=== PATIENT | male | born 1950 | race Caucasian/White ===

== ENCOUNTER → 2017-03-20 | Day surgery (SDC) | payer MEDICARE, OTHER ==
[~2017-03-20] MED LIST: Lactated Ringers 1,000 ML IV SCH; Propofol 200 MG/20 ML SDV IV ONE
[2017-03-20 08:45] VITALS: BP 143/89
--- NOTE | 2017-03-20 13:32 | OR ---
DATE OF OPERATION: 03/20/2017 PREOPERATIVE DIAGNOSIS: POSITIVE COLOGUARD. POSTOPERATIVE DIAGNOSIS: POSITIVE COLOGUARD. SURGEON: Edward Hou MD PROCEDURE: FULL-LENGTH COLONOSCOPY WITH POLYPECTOMY X4. ANESTHESIA: [employer] due to obesity and chronic GERD. COMPLICATIONS: None. SPECIMEN: Four tubular adenomas. FINDINGS: 1. Full-length colonoscopy. 2. Minimal sigmoid diverticulosis. 3. Four colon polyps, one approximately 0.5 cm at the rectal vault. RECOMMENDATIONS: Followup colonoscopy in 2 years. INDICATIONS: The patient was in for a physical, had a positive Cologuard. He has been over 16 years since his last colonoscopy. Dr. Crowder sent him for procedure. DESCRIPTION OF PROCEDURE: The patient was prepped and draped, placed in the left lateral decubitus position. A lubricated Olympus colonoscope was inserted and easily advanced to the cecum. Direct visualization of the ileocecal valve and appendiceal orifice was accomplished. The bowel prep was adequate. Upon withdrawal of the scope, the cecum appeared benign. In the proximal ascending colon, just outside the cecal vault, patient had a small flat tubular adenoma removed in its entirety with 2 separate forceps biopsies. He had a second polyp near the hepatic flexure, similar in size, well less than 0.5 cm also removed with the forceps. The rest of the transverse and descending colons were completely benign. In the sigmoid colon, the patient did have a few scattered diverticula, but very minimal. No signs of any vascular abnormalities, bleeding sites, or colitis. He had a larger adenoma approximately 0.5 cm which was flat, but easily removed with a snare and suctioned into a polyp trap #1, in the mid sigmoid colon. The rectal vault itself had the 4th tubular adenoma, easily stalked and removed with a snare, was slightly larger than a 0.5 cm in size. It was suctioned into a polyp trap, #2. Retroflexion of scope in the rectum showed no perianal lesions. Air was suctioned. The scope was removed without complication. SUSY/ELIZ /[id number]
== END ==
LOC: CC.SDS 06:14
PROVIDERS: ATTEND Family Medicine
DX: Z12.11 Encounter for screening for malignant neoplasm of colon (principal); D12.0 Benign neoplasm of cecum; D12.3 Benign neoplasm of transverse colon; D12.5 Benign neoplasm of sigmoid colon; D12.8 Benign neoplasm of rectum; K57.30 Diverticulosis of large intestine without perforation or abscess without bleeding; I10 Essential (primary) hypertension; E78.5 Hyperlipidemia, unspecified; K21.9 Gastro-esophageal reflux disease without esophagitis; E55.9 Vitamin D deficiency, unspecified; Z91.012 Allergy to eggs; Z79.899 Other long term (current) drug therapy; Z87.891 Personal history of nicotine dependence
CPT/HCPCS: 00812; 88305; J2704; J7120

== ENCOUNTER → 2018-12-23 | Day surgery (SDC) | payer MEDICARE, OTHER ==
[~2018-12-23] MED LIST changes: +Albuterol 8 GM Inhaler INH PRN; +Bupivacaine 0.25% 10 ML SDV ONE; +Bupivacaine 0.5%/EPINEPHrine 1:200,000 10 ML SDV ONE; +METOPROLOL SUCCINATE 50 MG PO SCH; +Non-Formulary Medication 1 Each (Esomeprazole Magnesium [Esomeprazole Magnesium] 40 MG) PO SCH; +QUINAPRIL 20 MG PO SCH; +Sodium Chloride 0.9% 10 ML Syringe FLUSH PRN; +ceFAZolin 1 GM Vial IVPUSH ONE; +fentaNYL 100 MCG/2 ML SDV ONE
--- NOTE | 2018-12-23 13:26 | OR ---
DATE OF OPERATION: 12/23/2018 PREOPERATIVE DIAGNOSIS: LARGE SCROTAL RIGHT INGUINAL HERNIA. POSTOPERATIVE DIAGNOSIS: LARGE SCROTAL RIGHT INGUINAL HERNIA. SURGEON: Paul Laurent MD PROCEDURE: OPEN REPAIR OF SCROTAL INGUINAL HERNIA WITH MESH. ANESTHESIA: General. ESTIMATED BLOOD LOSS: Minimum. SPECIMEN: Hernia sac. INDICATIONS: This 68-year-old male has a large inguinal hernia. He states it has gotten much larger over the last few months and actually on an out of town visit was admitted to the hospital for bowel obstruction. This obstruction resolved, however, and he came home without having any surgery. He now presents for definitive repair. DESCRIPTION OF PROCEDURE: After adequate preparation, a right groin incision was made and carried down to the external abdominal oblique. This was opened in the direction of fibers and the external ring was identified and the fascia divided through the external ring. This exposed a large hernia sac with small bowel easily visible through the hernia sac. By blunt dissection, the hernia sac was dissected free from the scrotal structures and brought up into the wound. The hernia sac was dissected free from the cord and the preperitoneal fat pad that accompanied it. The sac was then identified to be an indirect sac and the bowel contents were all reduced easily back into the abdomen. The hernia sac was then twisted to close it down to the deep inguinal ring. A transfixion suture of 0 Prolene x2 was done to tie off the hernia sac and the distal sac was amputated. The excess preperitoneal fat was also trimmed from the cord. A precut Prolene mesh was used then to strengthen the inguinal floor. The inferior margin of the mesh was attached to the inguinal ligament with a running 0 Prolene suture. The upper was tacked to the rectus abdominis and the internal oblique by using interrupted 0 Vicryl sutures. A tail had been pre cut in the mesh. This was surrounded. As the cord came through the deep inguinal ring, the ends of the mesh and tail were sutured together to close off this space. This seemed to adequately cover the inguinal floor. Hemostasis was secured. The external oblique was oversewn over the cord that was replaced back in the inguinal canal. A 10 mm Jason-Salazar drain was introduced through a stab incision lateral to the incision. This was then placed in the subcutaneous space and manipulated down into the empty space in the right scrotal sac. The skin was closed with Monocryl. The patient was taken to recovery room. MARIA ELENA/ELIZ /[id number]
[2018-12-23] MEDS: Acetaminophen/oxyCODONE 325-5 MG Tab PO PRN ×2 (14:33→19:44)
[2018-12-24] MEDS: Acetaminophen/oxyCODONE 325-5 MG Tab PO PRN ×2 (02:05→09:41)
--- NOTE | 2018-12-24 07:56 | PCM.SN ---
- Free Text/Narrative Note: Stable POD#1. Pain controlled with PO Percocet. Ambulation without difficulty. Drain with minimal output. VSS. Plan on discharge later today. Get up and have breakfast first. FU with Johnny Avalos next week for drain removal. Percocet (#20) given for pain. No restrictions on diet or activity.
[2018-12-24 12:40] VITALS: BP 146/83; PULSE 78
== END | disposition home or self-care (01) ==
LOC: CC.SDS 07:30
PROVIDERS: ATTEND Surgery
DX: K40.90 Unilateral inguinal hernia, without obstruction or gangrene, not specified as recurrent (principal)
CPT/HCPCS: A9270-GY; J0690; J2270; J2704; J3010; J7120

== ENCOUNTER 2018-12-24 18:14 | Emergency (ER) | payer MEDICARE, OTHER ==
[2018-12-24 18:18] VITALS: BP 158/100; PULSE 92
[2018-12-24] MEDS ORDERED: Ondansetron 4 MG Tab.DIS ONE (18:21)
--- NOTE | 2018-12-24 18:26 | EDM.PDOC ---
ED HPI GENERAL MEDICAL PROBLEM - General Chief Complaint: Abdominal Pain Stated Complaint: ABD Pain Time Seen by Provider: 12/24/18 18:15 Source of Information: Reports: Patient History Limitations: Reports: No Limitations - History of Present Illness INITIAL COMMENTS - FREE TEXT/NARRATIVE: This patient is a 68 year old male that presents to the ER. Patient reports that he had hernia repair yesterday, was discharged this morning. Patient reports since being discharged home he has not had gas or a BM. Patient reports he has been belching and feels nauseated. Patient reports history of bowel obstruction 1 month ago per patient. Onset: Today Onset Date: 12/24/18 Onset Time: 11:00 Location: Reports: Abdomen Improves with: Reports: None Worsens with: Reports: None Associated Symptoms: Reports: Nausea/Vomiting. Denies: Confusion, Chest Pain, Cough, cough w sputum, Diaphoresis, Fever/Chills, Headaches, Loss of Appetite, Malaise, Rash, Seizure, Shortness of Breath, Syncope, Weakness mid abd Pain Score (Numeric/FACES): 6 - Related Data Allergies Allergy/AdvReac Type Severity Reaction Status Date / Time banana Allergy Vomiting Verified 12/24/18 18:18 egg Allergy Other Verified 12/24/18 18:18 Home Meds: Home Meds Cetirizine [ZyrTEC] 10 mg PO DAILY 03/20/17 [History] Esomeprazole Magnesium 40 mg PO DAILY 03/20/17 [History] Metoprolol Succinate [Toprol XL 50mg] 50 mg PO DAILY 03/20/17 [History] Naproxen Sodium [Aleve] 220 mg PO DAILY 03/20/17 [History] Quinapril [Accupril] 20 mg PO DAILY 03/20/17 [History] Sildenafil [Viagra] 50 mg PO ASDIRECTED PRN 03/20/17 [History] Albuterol Sulfate [Albuterol Sulfate Hfa] 1 puff INH Q4H PRN 12/22/18 [History] Acetaminophen/oxyCODONE [Percocet 325-5 MG] 1 each PO Q4HR PRN 12/24/18 [History ] ED ROS GENERAL - Review of Systems Review Of Systems: See Below Constitutional: Reports: No Symptoms HEENT: Reports: No Symptoms Respiratory: Reports: No Symptoms Cardiovascular: Reports: No Symptoms Endocrine: Reports: No Symptoms GI/Abdominal: Reports: Abdominal Pain (surgical site. and feels "backed up"), Constipation, Nausea. Denies: Diarrhea, Flatus, Vomiting : Reports: No Symptoms Musculoskeletal: Reports: No Symptoms Skin: Reports: No Symptoms Neurological: Reports: No Symptoms Psychiatric: Reports: No Symptoms Hematologic/Lymphatic: Reports: No Symptoms Immunologic: Reports: No Symptoms ED EXAM, GI/ABD - Physical Exam Exam: See Below Exam Limited By: No Limitations General Appearance: Alert, WD/WN, No Apparent Distress Eyes: Bilateral: Normal Appearance Respiratory/Chest: No Respiratory Distress, Lungs Clear, Normal Breath Sounds, No Accessory Muscle Use Cardiovascular: Normal Peripheral Pulses, Regular Rate, Rhythm, No Edema, No Gallop, No JVD, No Murmur, No Rub GI/Abdominal Exam: Normal Bowel Sounds, Soft, Tender (RLQ at srugical site. ), Other (DAVID draine RLQ, drainging without complication. No surrounding redness or heat, or drainge at site that appears to be infectious. ). No: Guarding, Rebound Back Exam: Normal Inspection, Full Range of Motion Extremities: Normal Inspection, Normal Range of Motion, Non-Tender, No Pedal Edema, Normal Capillary Refill Neurological: Alert, Oriented Psychiatric: Normal Affect, Normal Mood Skin Exam: Warm, Dry, Intact, Normal Color, No Rash Course - Vital Signs Last Recorded V/S: Last Vital Signs Temp 99.3 F 12/24/18 18:15 Pulse 92 12/24/18 18:15 Resp 18 12/24/18 18:15 BP 158/100 H 12/24/18 18:15 Pulse Ox 96 12/24/18 18:15 - Orders/Labs/Meds Orders: Active Orders 24 hr Category Date Time Status Enema [RC] ASDIRECTED Care 12/24/18 18:52 Active Labs: Laboratory Tests 12/24/18 12/24/18 Range/Units 18:15 18:15 WBC 9.9 (5.0-10.0) 10^3/uL RBC 4.61 (4.50-6.00) 10^6/uL Hgb 14.6 (14.0-18.0) g/dL Hct 42.6 (40.0-54.0) % MCV 92.4 (82.0-94.0) fL MCH 31.7 (27.0-32.0) pg MCHC 34.3 (33.0-38.0) g/dL RDW Coeff of Lito 13.6 (11.0-15.0) % Plt Count 206 (150-400) 10^3/uL Neut % (Auto) 78.9 (35-85) % Lymph % (Auto) 11.4 (10-55) % Wolfe % (Auto) 9.0 (0-16) % Eos % (Auto) 0.5 (0-5) % Baso % (Auto) 0.2 (0-3) % Neut # (Auto) 7.84 H (1.80-7.00) 10^3/uL Lymph # (Auto) 1.13 (1.00-4.80) 10^3/uL Wolfe # (Auto) 0.89 H (0.00-0.80) 10^3/uL Eos # (Auto) 0.05 (0.00-0.45) 10^3/uL Baso # (Auto) 0.02 10^3/uL Sodium 137 (136-145) mEq/L Potassium 4.2 (3.5-5.0) mEq/L Chloride 100 (98-106) mEq/L Carbon Dioxide 24 (21-32) mmol/L BUN 17 (7-18) mg/dL Creatinine 1.4 H (0.7-1.3) mg/dL Est Cr Clr Drug Dosing 52.14 mL/min Estimated GFR (MDRD) 50 L (>=60) mL/min Glucose 120 H (75-99) mg/dL Calcium 9.0 (8.4-10.1) mg/dL Total Bilirubin 1.3 H (0.0-1.0) mg/dL AST 18 (15-37) U/L ALT 22 (12-78) U/L Alkaline Phosphatase 72 (46-116) U/L Total Protein 7.3 (6.4-8.2) g/dL Albumin 3.4 (3.4-5.0) g/dL Amylase 57 (25-115) U/L Lipase 108 (73-393) U/L Meds: Medications Discontinued Medications Generic Name Dose Route Start Last Admin Trade Name Freq PRN Reason Stop Dose Admin Magnesium Hydroxide 30 ml 12/24/18 18:52 12/24/18 19:19 Milk Of Magnesia PO 12/24/18 18:53 30 ml ONETIME ONE Administration Ondansetron HCl 4 mg 12/24/18 18:33 12/24/18 18:36 Zofran Odt PO 12/24/18 18:34 4 mg ONETIME ONE Administration Ondansetron HCl Confirm 12/24/18 18:21 12/24/18 19:19 Zofran Odt Administered 12/24/18 18:22 Not Given Dose 4 mg .ROUTE .[facility] ONE - Re-Assessments/Exams Free Text/Narrative Re-Assessment/Exam: 12/24/18 19:27 Dr. Pabon surgeon came in and saw the patient. He reports the patient is constipated from surgery. He reports to give the patient milk of magnesia, fleet enema and discharge home. Patient would like to go home to do the enema. Will discharge the patient, educated when to return. Patient wbc is not elevated , he does not have fever or vomiting. Departure - Departure Time of Disposition: 18:54 Disposition: Home, Self-Care 01 Condition: Fair Clinical Impression: Constipation Qualifiers: Constipation type: unspecified constipation type Qualified Code(s): K59.00 - Constipation, unspecified - Discharge Information *PRESCRIPTION DRUG MONITORING PROGRAM REVIEWED*: Not Applicable *COPY OF PRESCRIPTION DRUG MONITORING REPORT IN PATIENT TRACIE: Not Applicable Instructions: Constipation, Adult, [id number], Preventing Constipation After Surgery Referrals: Ayan Avalos PA-C [Primary Care Provider] - Forms: ED Department Discharge Additional Instructions: Followup with your surgeon Followup with primary care provider Return to the ER for worsening of condition or any emergent concerns such as increased abdominal pain, fever, vomiting Increase fluids Enema at home as needed Milk of Mangesia as needed at home - My Orders Last 24 Hours: My Active Orders 12/24/18 18:52 Enema [RC] ASDIRECTED - Assessment/Plan Last 24 Hours: My Active Orders 12/24/18 18:52 Enema [RC] ASDIRECTED Plan: PLEASE SEE RN NOTE FOR PFSH.
[2018-12-24] MEDS ORDERED: Ondansetron 4 MG Tab.DIS PO ONE (18:33)
[2018-12-24] MEDS ORDERED: Magnesium Hydroxide 400 MG/5 ML Susp 30 ML Cup PO ONE (18:52)
== END 2018-12-24 19:19 | disposition home or self-care (01) ==
LOC: CC.ED 18:14
DX: K59.00 Constipation, unspecified (principal); Z91.018 Allergy to other foods; Z91.012 Allergy to eggs
CPT/HCPCS: 36415; 80053; 82150; 83690; 85025; 99283; 99284; A9270

== ENCOUNTER → 2019-04-15 | Day surgery (SDC) | payer MEDICARE, OTHER ==
[~2019-04-15] MED LIST changes: -Albuterol 8 GM Inhaler INH PRN; -Bupivacaine 0.25% 10 ML SDV ONE; -Bupivacaine 0.5%/EPINEPHrine 1:200,000 10 ML SDV ONE; -METOPROLOL SUCCINATE 50 MG PO SCH; -Non-Formulary Medication 1 Each (Esomeprazole Magnesium [Esomeprazole Magnesium] 40 MG) PO SCH; -QUINAPRIL 20 MG PO SCH; -Sodium Chloride 0.9% 10 ML Syringe FLUSH PRN; -ceFAZolin 1 GM Vial IVPUSH ONE; -fentaNYL 100 MCG/2 ML SDV ONE
[2019-04-15 13:03] VITALS: BP 152/87; PULSE 65
--- NOTE | 2019-04-18 09:19 | OR ---
DATE OF OPERATION: 04/15/2019 PREOPERATIVE DIAGNOSIS: FOLLOWUP POLYPS. POSTOPERATIVE DIAGNOSIS: FOLLOWUP POLYPS. SURGEON: Edward Hou MD PROCEDURE: DIAGNOSTIC COLONOSCOPY WITH SNARE POLYPECTOMY X1. ANESTHESIA: MAC. COMPLICATIONS: None. SPECIMEN: Villous adenoma, hepatic flexure, slightly greater than 0.5 cm. FINDINGS: 1. Full-length colonoscopy. 2. Mild diverticulosis, sigmoid colon. 3. Small villous polyp, hepatic flexure. RECOMMENDATIONS: Followup colonoscopy in 5 years. INDICATIONS: The patient had a colonoscopy 4 years ago and had 4 polyps removed, 2 of them greater than 0.5 cm. We elected to have a 2-year followup. DESCRIPTION OF PROCEDURE: The patient was prepped and draped, placed in the left lateral decubitus position. A lubricated Olympus colonoscope was inserted and easily advanced to the cecum. Direct visualization of the ileocecal valve and appendiceal orifice accomplished. The bowel prep was fine. Upon withdrawal of the scope, cecum and ascending colon appeared benign. Just proximal to the hepatic flexure, the patient had a 0.5 cm or so flat polyp located along the haustral fold, removed it with a snare and suctioned into polyp trap #1 without complication. The rest of the transverse and descending colons were unremarkable. The sigmoid colon had scattered diverticula in the rectosigmoid region, mild in severity. No inflammatory changes. No other polyps seen. The rectal vault was benign. Retroflexion of the scope in the rectum showed no anal lesions. Air was suctioned, scope removed without complication. SUSY/MARKL /[id number]
== END ==
LOC: CC.SDS 10:58
PROVIDERS: ATTEND Family Medicine
DX: Z12.11 Encounter for screening for malignant neoplasm of colon (principal); D12.3 Benign neoplasm of transverse colon; K57.30 Diverticulosis of large intestine without perforation or abscess without bleeding; K21.9 Gastro-esophageal reflux disease without esophagitis; I10 Essential (primary) hypertension; N53.9 Unspecified male sexual dysfunction; M19.90 Unspecified osteoarthritis, unspecified site; E66.9 Obesity, unspecified; Z86.010 Personal history of colon polyps; Z91.018 Allergy to other foods; Z91.012 Allergy to eggs; Z79.1 Long term (current) use of non-steroidal anti-inflammatories (NSAID); Z79.899 Other long term (current) drug therapy; Z87.891 Personal history of nicotine dependence; Z68.35 Body mass index [BMI] 35.0-35.9, adult
CPT/HCPCS: 45385; J2704; J7120

== ENCOUNTER 2023-04-08 07:08 | Emergency (ER) | payer MEDICARE, OTHER ==
[2023-04-08 08:01] LABS: BASOPHILS ABSOLUTE AUTO 0.07 10^3/uL (0.00-0.50); BASOPHILS PERCENT AUTO 1.3 % (0-1); EOSINOPHILS ABSOLUTE AUTO 0.24 10^3/uL (0.00-1.50); EOSINOPHILS PERCENT AUTO 4.4 % (0-6); HEMATOCRIT 42.8 % (42.0-52.0); HEMOGLOBIN 15.1 g/dL (14.0-18.0); IMMATURE GRAN ABSOLUTE AUTO 0.01 10^3/uL (0.00-0.49); IMMATURE GRAN PERCENT AUTO 0.2 % (0.0-4.9); LYMPHOCYTES ABSOLUTE AUTO 0.62 10^3/uL (0.60-5.00); LYMPHOCYTES PERCENT AUTO 11.5 % (24-44); MEAN CORPUSCULAR HEMOGLOBIN 32.1 pg (27.0-32.0); MEAN CORPUSCULAR HGB CONC 35.3 g/dL (32.0-36.0); MEAN CORPUSCULAR VOLUME 90.9 fL (83.0-97.0); MONOCYTES ABSOLUTE AUTO 0.61 10^3/uL (0.00-1.50); MONOCYTES PERCENT AUTO 11.3 % (0-10); NEUTROPHILS ABSOLUTE AUTO 3.86 x10^3/uL (1.80-8.00); NEUTROPHILS PERCENT AUTO 71.3 % (41-71); PLATELET COUNT,PLT 169 10^3/uL (150-400); RED BLOOD CELL COUNT 4.71 x10^6/uL (4.50-6.00); WHITE BLOOD CELL COUNT,WBC 5.4 10^3/uL (4.0-11.0)
[2023-04-08 08:08] LABS: ALBUMIN 3.6 g/dL (3.4-5.0); BILIRUBIN TOTAL 0.7 mg/dL (0.0-1.0); CALCIUM 8.3 mg/dL (8.4-10.1); CREATININE 1.5 mg/dL (0.7-1.3); EST CRCL DRUG DOSING (CG) 45.96 mL/min; MAGNESIUM 1.8 mg/dL (1.8-2.4); POTASSIUM,K 4.1 mEq/L (3.5-5.0); PROTEIN TOTAL,TP 7.5 g/dL (6.4-8.2)
[2023-04-08 08:16] LABS: INR 1.04 (0.92-1.18); PROTHROMBIN TIME 10.9 SEC (9.3-11.3); PTT,PARTIAL THROMBOPLSTIN TIME 24.3 SEC (20.0-30.0)
[2023-04-08 08:43] VITALS: BP 174/89; PULSE 63
== END 2023-04-08 08:58 | disposition home or self-care (01) ==
LOC: CC.ED 07:08
DX: R07.89 Other chest pain (principal); I10 Essential (primary) hypertension; Z91.018 Allergy to other foods; Z91.012 Allergy to eggs; Z79.899 Other long term (current) drug therapy
CPT/HCPCS: 36415; 71046; 80053; 83690; 83735; 84484; 85025; 85610; 85730; 87804; 93005; 93010; 99284; 99285; U0002

== ENCOUNTER 2024-08-05 10:18 | Day surgery (SDC) | payer MEDICARE, OTHER ==
[2024-08-05] MEDS: Lactated Ringers 1,000 ML IV SCH (10:42)
[2024-08-05] MEDS ORDERED: Flumazenil 0.1 MG/ML 5 ML MDV ONE (11:07)
[2024-08-05] MEDS ORDERED: Propofol 200 MG/20 ML SDV ONE (11:07)
[2024-08-05] MEDS ORDERED: Ketamine 200 MG/20 ML MDV ONE (11:07)
[2024-08-05] MEDS ORDERED: fentaNYL 50 MCG/ML SDV ONE (11:07)
[2024-08-05] MEDS ORDERED: Midazolam 1 MG/ML 2 ML SDV ONE (11:07)
[2024-08-05 12:10] VITALS: BP 117/65; PULSE 63
== END 2024-08-05 12:32 ==
LOC: CC.SDS 10:18
PROVIDERS: ATTEND Family Medicine
DX: Z12.11 Encounter for screening for malignant neoplasm of colon (principal); D12.3 Benign neoplasm of transverse colon; D12.5 Benign neoplasm of sigmoid colon; I10 Essential (primary) hypertension; E78.5 Hyperlipidemia, unspecified; K21.9 Gastro-esophageal reflux disease without esophagitis; Z79.899 Other long term (current) drug therapy; Z91.012 Allergy to eggs; Z91.018 Allergy to other foods; Z86.0100 Personal history of colon polyps, unspecified
CPT/HCPCS: 00811; 88305; 99100; J2250; J2704; J3010; J3490; J7120